=== PATIENT | female | born 1980 | race Caucasian/White ===

== ENCOUNTER → 2018-12-20 16:09 | Outpatient (CLI) | payer OTHER | END | disposition home or self-care (01) | LOC: LAB 16:09 | DX: O09.529 Supervision of elderly multigravida, unspecified trimester (principal) ==

== ENCOUNTER → 2018-12-20 | Outpatient (CLI) | payer OTHER ==
[~2018-12-20] MED LIST: PRENATAL CAPLE1 EACH PO; PRENATE ADVANCE PO; Tylenol Extra Strength 500MG PO
== END | disposition home or self-care (01) ==
LOC: PRENATAL 12:57
DX: O30.91 Multiple gestation, unspecified, first trimester (principal); O36.80X0 Pregnancy with inconclusive fetal viability, not applicable or unspecified; O09.521 Supervision of elderly multigravida, first trimester; Z36.0 Encounter for antenatal screening for chromosomal anomalies

== ENCOUNTER → 2019-02-03 | Outpatient (CLI) | payer OTHER | END | disposition home or self-care (01) | LOC: PRENATAL 10:00 | DX: O30.042 Twin pregnancy, dichorionic/diamniotic, second trimester (principal); O35.3XX2 Maternal care for (suspected) damage to fetus from viral disease in mother, fetus 2; O60.02 Preterm labor without delivery, second trimester ==

== ENCOUNTER → 2019-03-07 | Outpatient (CLI) | payer OTHER | END | disposition home or self-care (01) | LOC: PRENATAL 08:30 | DX: O30.90 Multiple gestation, unspecified, unspecified trimester (principal); O09.90 Supervision of high risk pregnancy, unspecified, unspecified trimester; O43.90 Unspecified placental disorder, unspecified trimester; O09.529 Supervision of elderly multigravida, unspecified trimester; Z3A.23 23 weeks gestation of pregnancy; O26.849 Uterine size-date discrepancy, unspecified trimester ==

== ENCOUNTER → 2019-03-28 | Outpatient (CLI) | payer OTHER | END | disposition home or self-care (01) | LOC: PRENATAL 11:00 | DX: O26.842 Uterine size-date discrepancy, second trimester (principal); O36.5922 Maternal care for other known or suspected poor fetal growth, second trimester, fetus 2; O30.012 Twin pregnancy, monochorionic/monoamniotic, second trimester ==

== ENCOUNTER 2019-04-05 10:49 | Outpatient (CLI) | payer OTHER | END 2019-04-05 13:55 | disposition home or self-care (01) | LOC: NST 10:49 | DX: Z34.83 Encounter for supervision of other normal pregnancy, third trimester (principal) ==

== ENCOUNTER 2019-04-12 15:15 | Inpatient (IN) | payer OTHER ==
[~2019-04-12] VITALS: Ht 165.1 cm; Wt 69.4 kg
[2019-04-12] MEDS ORDERED: IRON236 MG PO (21:09)
[2019-04-12] MEDS ORDERED: MULTI VITAMIN1 EACH PO (21:09)
[2019-04-12] MEDS ORDERED: FOLIC ACID0.8 M1 PO (21:09)
[2019-04-12] MEDS ORDERED: CHILDREN'S ASPI81 MG PO (21:09)
== END 2019-04-20 19:01 | disposition home or self-care (01) | DRG 833 ==
LOC: OBS/DEL 15:15 → LDR 20:08 → OB/GYN 04-13 18:00
PROVIDERS: ADMIT Obstetrics & Gynecology
DX: O47.03 False labor before 37 completed weeks of gestation, third trimester (principal); O36.5931 Maternal care for other known or suspected poor fetal growth, third trimester, fetus 1; O30.003 Twin pregnancy, unspecified number of placenta and unspecified number of amniotic sacs, third trimester; Z3A.28 28 weeks gestation of pregnancy

== ENCOUNTER → 2019-04-27 | Outpatient (CLI) | payer OTHER ==
[~2019-04-27] MED LIST changes: +CHILDREN'S ASPI81 MG PO; +FOLIC ACID0.8 M1 PO; +IRON236 MG PO; +MULTI VITAMIN1 EACH PO
== END | disposition home or self-care (01) ==
LOC: PRENATAL 11:19
DX: O36.8132 Decreased fetal movements, third trimester, fetus 2 (principal); O35.0XX2 Maternal care for (suspected) central nervous system malformation in fetus, fetus 2; O30.93 Multiple gestation, unspecified, third trimester; O36.5992 Maternal care for other known or suspected poor fetal growth, unspecified trimester, fetus 2

== ENCOUNTER → 2019-05-04 | Outpatient (CLI) | payer OTHER | END | disposition home or self-care (01) | LOC: PRENATAL 04-20 13:00 | DX: O35.0XX2 Maternal care for (suspected) central nervous system malformation in fetus, fetus 2 (principal); O26.843 Uterine size-date discrepancy, third trimester; O36.5992 Maternal care for other known or suspected poor fetal growth, unspecified trimester, fetus 2; O30.043 Twin pregnancy, dichorionic/diamniotic, third trimester ==

== ENCOUNTER 2019-05-09 15:51 | Inpatient (IN) | payer OTHER ==
[~2019-05-09] VITALS: Ht 165.1 cm; Wt 1.4 kg
== END 2019-05-24 17:14 | disposition home or self-care (01) | DRG 806 ==
LOC: LDR 05-22 10:50 → OB/GYN 05-22 10:50
PROVIDERS: ADMIT Obstetrics & Gynecology
PROC: 10E0XZZ Delivery of Products of Conception, External Approach (ICD-10-PCS; principal; 2019-05-22)
PROC: 10907ZC Drainage of Amniotic Fluid, Therapeutic from Products of Conception, Via Natural or Artificial Opening (ICD-10-PCS; 2019-05-22)
PROC: 4A1HXFZ Monitoring of Products of Conception, Cardiac Rhythm, External Approach (ICD-10-PCS; 2019-05-22)
PROC: 3E033VJ Introduction of Other Hormone into Peripheral Vein, Percutaneous Approach (ICD-10-PCS; 2019-05-22)
DX: O60.14X0 Preterm labor third trimester with preterm delivery third trimester, not applicable or unspecified (principal); O41.03X2 Oligohydramnios, third trimester, fetus 2; Z37.2 Twins, both liveborn; O36.5932 Maternal care for other known or suspected poor fetal growth, third trimester, fetus 2; O30.043 Twin pregnancy, dichorionic/diamniotic, third trimester; Z3A.34 34 weeks gestation of pregnancy

== ENCOUNTER → 2019-05-09 | Outpatient (CLI) | payer OTHER | END | disposition home or self-care (01) | LOC: NST 13:34 | DX: Z34.83 Encounter for supervision of other normal pregnancy, third trimester (principal) ==

== ENCOUNTER → 2019-05-11 | Outpatient (CLI) | payer OTHER | END | disposition home or self-care (01) | LOC: PRENATAL 08:00 | DX: O36.5992 Maternal care for other known or suspected poor fetal growth, unspecified trimester, fetus 2 (principal); O36.8192 Decreased fetal movements, unspecified trimester, fetus 2; O35.0XX2 Maternal care for (suspected) central nervous system malformation in fetus, fetus 2; O30.043 Twin pregnancy, dichorionic/diamniotic, third trimester ==

== ENCOUNTER 2019-05-16 15:41 | Outpatient (CLI) | payer OTHER | END 2019-05-16 17:50 | disposition home or self-care (01) | LOC: NST 15:41 | DX: Z34.83 Encounter for supervision of other normal pregnancy, third trimester (principal); O30.003 Twin pregnancy, unspecified number of placenta and unspecified number of amniotic sacs, third trimester ==

== ENCOUNTER → 2019-05-18 | Outpatient (CLI) | payer OTHER | END | disposition home or self-care (01) | LOC: PRENATAL 08:29 | DX: O36.8192 Decreased fetal movements, unspecified trimester, fetus 2 (principal); O36.5992 Maternal care for other known or suspected poor fetal growth, unspecified trimester, fetus 2; O30.042 Twin pregnancy, dichorionic/diamniotic, second trimester ==

== ENCOUNTER 2023-02-12 10:05 | Outpatient (CLI) | payer OTHER | END 2023-02-12 10:08 | disposition home or self-care (01) | LOC: PRENATAL 10:05 | PROVIDERS: ATTEND Obstetrics & Gynecology Maternal & Fetal Medicine | DX: O36.80X0 Pregnancy with inconclusive fetal viability, not applicable or unspecified (principal); Z36.9 Encounter for antenatal screening, unspecified; Z36.82 Encounter for antenatal screening for nuchal translucency; Z3A.13 13 weeks gestation of pregnancy ==

== ENCOUNTER → 2023-03-23 12:27 | Outpatient (CLI) | payer OTHER | END | disposition home or self-care (01) | LOC: PRENATAL 12:27 | PROVIDERS: ATTEND Obstetrics & Gynecology Maternal & Fetal Medicine | DX: O35.9XX0 Maternal care for (suspected) fetal abnormality and damage, unspecified, not applicable or unspecified (principal); O35.3XX0 Maternal care for (suspected) damage to fetus from viral disease in mother, not applicable or unspecified; O44.00 Complete placenta previa NOS or without hemorrhage, unspecified trimester; O09.529 Supervision of elderly multigravida, unspecified trimester; Z3A.19 19 weeks gestation of pregnancy ==

== ENCOUNTER 2023-05-25 11:43 | Outpatient (CLI) | payer OTHER | END 2023-05-25 11:44 | disposition home or self-care (01) | LOC: PRENATAL 11:43 | PROVIDERS: ATTEND Obstetrics & Gynecology Maternal & Fetal Medicine | DX: O26.849 Uterine size-date discrepancy, unspecified trimester (principal); O09.529 Supervision of elderly multigravida, unspecified trimester; Z3A.28 28 weeks gestation of pregnancy ==